=== PATIENT | female | born 1980 | race Caucasian/White ===

== ENCOUNTER 2017-01-05 12:19 | Emergency (ER) | payer OTHER, SELFPAY | END 2017-01-05 13:40 | disposition home or self-care (01) | LOC: FER 12:19 | DX: S52.572A Other intraarticular fracture of lower end of left radius, initial encounter for closed fracture (principal); W11.XXXA Fall on and from ladder, initial encounter; Y92.009 Unspecified place in unspecified non-institutional (private) residence as the place of occurrence of the external cause | CPT/HCPCS: 73090; 73110 ==

== ENCOUNTER → 2017-01-08 | Day surgery (SDC) | payer OTHER, SELFPAY | END | disposition home or self-care (01) | LOC: FAS 11:03 | DX: S52.572A Other intraarticular fracture of lower end of left radius, initial encounter for closed fracture (principal); S52.562A Barton's fracture of left radius, initial encounter for closed fracture; Z98.890 Other specified postprocedural states; Z79.899 Other long term (current) drug therapy | CPT/HCPCS: 73100; 76000; 84703; C1713; C1769; J1100; J1170; J1885; J2405; J2704; J3010 ==